=== PATIENT | female | born 1960 | race Caucasian/White ===

== ENCOUNTER 2020-02-08 15:33 | Emergency (ER) | payer OTHER, SELFPAY ==
[2020-02-08 15:54] VITALS: BP 118/73; PULSE 81; RESP 18; TEMP 36.2; O2SAT 100
--- NOTE | 2020-02-08 16:01 | ED.GENADULT ---
HPI - General Adult General Chief complaint: Upper Respiratory Infection Stated complaint: sinus infection Time Seen by Provider: 02/08/20 16:01 Source: patient and RN notes reviewed Mode of arrival: ambulatory Limitations: no limitations History of Present Illness HPI narrative: 59-year-old presents with upper respiratory infection, sneezing, some facial congestion, facial pressure, intermittent dizziness, intermittent fluttery feeling in heart that takes her breath away, and intermittent headache (not the worst of her life) for the past 2 months. Flonase, Claritin, Ibuprofen (none in several days) and Excedrin migraine (last 02/07/20) with some relief. History of Asthma. No facial swelling. No cough. Intermittent nasal congestion. No rhinorrhea. Denies sore throat. No high fevers, drooling, neck or throat swelling. No voice change. Denies diarrhea, nausea, vomiting, or abdominal pain. Tolerating liquids well. Denies chills, dyspnea, difficulty swallowing, jaw pain, dental pain, foreign body sensation, and rash. No chest pain or shortness of breath. Denies recent traveling. Denies concern for COVID-19 or exposures been home since [id number] order except for essential household needs, limited working, and returned home. Complains of dizziness that has been intermittent for the past 2 months. Symptoms increased over the last 72 hours. No treatment. Exacerbating factors consist of changing position too fast turning. Relieving factors is sitting still. Denies ear pain, ear itching, ear trauma, trauma to head, syncopal episodes, altered vision, altered speech, confusion, or seizure activity. Denies numbness or tingling in extremities. Denies chest pain or dyspnea. Denies fever or chills. Tolerating p.o. intake well. Remains active. Some parts of this dictation were generated by voice recognition software and may contain typographical and/or grammatical inaccuracies. Related Data Home Medications Medication Instructions Recorded Confirmed levothyroxine 100 mcg PO DAILY 02/08/20 02/08/20 lisinopril 20 mg DAILY 02/08/20 02/08/20 Allergies Allergy/AdvReac Type Severity Reaction Status Date / Time Sulfa (Sulfonamide Allergy Mild HIVES Verified 02/08/20 15:49 Antibiotics) Review of Systems Review of Systems: Narrative: CONSTITUTIONAL: Denies fever, chills, sweats. EYES: Denies visual changes, redness, discharge. ENT: Complains of rhinorrhea, congestion, facial congestion and pressure. Denies sore throat, otalgia. CARDIOVASCULAR: Denies chest pain, palpitations, edema. Complains of intermittent fluttering of heart. RESPIRATORY: Denies dyspnea, wheezing, cough. GASTROINTESTINAL: Denies abdominal pain, nausea, vomiting, diarrhea. GENITOURINARY: Denies dysuria, hematuria, abnormal discharge SKIN: Denies rash or itching. MUSCULOSKELETAL: Denies acute back pain, joint pain, or myalgia. NEUROLOGIC: Denies numbness, or focal weakness. Complains of intermittent MCGRAW and dizziness. PSYCHIATRIC: Denies anxiety or depression. All other systems reviewed & are unremarkable except as noted in HPI and below. [facility] Past Medical History Medical History (Updated 02/09/20 @ 00:00 by Ricki Hinojosa) Jaylan's disease Hypertension Hypothyroidism Surgical History Surgical History (Updated 02/11/20 @ 06:33 by SHASHANK Cruz) H/O bilateral breast reduction surgery History of cholecystectomy History of hysterectomy History of shoulder surgery bilateral History of tonsillectomy Family History Family History (Updated 02/08/20 @ 16:21 by SHASHANK Cruz) Mother , Mother had open heart surgery in her lat 50's and at age 60. Marlee not sure what caused heart condition could have been HTN per Marlee. Hypertension S/P triple vessel bypass Father No problems noted. Social History Social History (Updated 02/08/20 @ 16:22 by SHASHANK Cruz) Smoking status: For
--- NOTE | 2020-02-08 16:20 | ECG_ITS ---
Measurements Intervals [place] Rate: 70 P: 71 MI: 163 QRS: 37 QRSD: 83 T: 52 QT: 410 QTc: 445 Interpretive Statements SINUS RHYTHM NORMAL ECG Electronically Signed On 02-09-2020 7:10:09 CDT by Uriel Rooney D.O.
[2020-02-08 16:24] VITALS: BP 125/78; BP 130/80; PULSE 79
[2020-02-08 16:25] VITALS: BP 129/81
== END 2020-02-08 16:57 | disposition home or self-care (01) ==
PROVIDERS: Emergency Provider Nurse Practitioner Family; PCP Family Medicine Adolescent Medicine
DX: J01.00 Acute maxillary sinusitis, unspecified (principal); R42 Dizziness and giddiness; Z87.891 Personal history of nicotine dependence; E06.3 Autoimmune thyroiditis; I10 Essential (primary) hypertension; E03.9 Hypothyroidism, unspecified
CPT/HCPCS: 93005; 99213; G0463

== ENCOUNTER → 2020-05-23 07:58 | Outpatient (CLI) | payer OTHER, SELFPAY ==
--- NOTE | ~2020-05-23 | MR_ITS ---
EXAMINATION: MR lumbar spine wo [facility] EXAM DATE: 05/23/2020 08:30 INDICATION: Low back pain and bilateral leg pain/numbness, intermittent for years. TECHNIQUE: Multi-sequential, multiplanar MR images of the lumbar spine were obtained without contrast . Sagittal T1, T2, T2 fat saturation images. Axial T2 weighted images. There is no prior study for comparison. FINDINGS: The conus medullaris terminates at the L1/2 level and has normal signal intensity and morph ology. There is 3 mm anterolisthesis L4 on L5. Moderate disc disease L5-S1, mild to moderate at L2-3 and mild at other lumbar levels. There are no suspicious marrow signal abnormalities. Paraspinal sof t tissue is unremarkable. Level by level evaluation: T12-L1: Disc does not extend beyond the endplate margin. Facet arthropathy: Mild. Neural foraminal stenosis: No stenosis. Central canal stenosis: No stenosis. L1-L2: There is a minimal diffuse disc bulge. Facet arthropathy: Mild. Neural foraminal stenosis: No stenosis. Central canal stenosis: No stenosis. L2-L3: There is a mild diffuse disc bulge. Facet arthropathy: Mild to moderate. Neural foraminal stenosis: Mild to moderate left, mild right. Central canal stenosis: Mild. L3-L4: There is a mild diffuse disc bulge. Facet arthropathy: Mild to moderate. Neural foraminal stenosis: Mild to moderate left, mild right. Central canal stenosis: Mild. L4-L5: There is a mild to moderate diffuse disc bulge. Facet arthropathy: Moderate. Neural foraminal stenosis: Moderate right, mild to moderate left. Central canal stenosis: Mild. L5-S1: There is a moderate diffuse disc bulge. Facet arthropathy: Mild to moderate. Neural foraminal stenosis: Moderate left, mild to moderate right. Central canal stenosis: Mild. IMPRESSION: 1. Mild to moderate lumbar spondylosis as detailed above. Reviewed, dictated and finalized at location A.
== END ==
PROVIDERS: Visit Provider Physician Assistant
DX: M47.896 Other spondylosis, lumbar region (principal); R20.0 Anesthesia of skin
CPT/HCPCS: 72148

== ENCOUNTER 2020-07-25 06:50 | Outpatient (NON) | payer OTHER, SELFPAY ==
[2020-07-25 19:25] LABS: SARS-CoV-2 RNA PCR Negative
== END 2020-07-25 06:51 ==
PROVIDERS: Visit Provider Physician Assistant
DX: Z02.1 Encounter for pre-employment examination (principal); Z20.828 Contact with and (suspected) exposure to other viral communicable diseases
CPT/HCPCS: 87635; C9803; U0003

== ENCOUNTER → 2021-06-05 15:38 | Outpatient (CLI) | payer OTHER, SELFPAY ==
--- NOTE | ~2021-06-05 | MM_ITS ---
EXAMINATION: MM screening [facility] BI w ayleen HISTORY: Screening TECHNIQUE: Craniocaudal and mediolateral oblique 3-D tomosynthesis images were obtained and synthetic 2-D images were generated. CAD analysis was submitted and interpreted. COMPARISON: Comparison to multiple prior studies sequentially, with oldest reviewed study dated 04/20. BREAST PARENCHYMAL COMPOSITION: There are scattered areas of fibroglandular density. FINDINGS: There is no evidence of suspicious mass, calcification, or architectural distortion to sugg est malignancy in either breast. There has been no suspicious interval change. IMPRESSION: 1. No mammographic evidence of malignancy. 2. Recommend routine screening mammography in one year. BI-RADS Category 1: Negative Reviewed, dictated and finalized at location A.
== END ==
PROVIDERS: PCP Family Medicine Adolescent Medicine; Visit Provider Physician Assistant
DX: Z12.31 Encounter for screening mammogram for malignant neoplasm of breast (principal)
CPT/HCPCS: 77063; 77067

== ENCOUNTER 2022-09-13 10:51 | Outpatient (CLI) | payer OTHER, SELFPAY | END 2022-09-13 10:52 | disposition home or self-care (01) | LOC: ANHAUDIO 10:51 | PROVIDERS: PCP Family Medicine Adolescent Medicine; Visit Provider Otolaryngology | DX: H93.13 Tinnitus, bilateral (principal); H90.3 Sensorineural hearing loss, bilateral | CPT/HCPCS: 92557; 92567 ==

== ENCOUNTER → 2022-09-26 14:16 | Outpatient (CLI) | payer OTHER, SELFPAY ==
--- NOTE | ~2022-09-26 | MM_ITS ---
EXAMINATION: MM screening [facility] BI w ayleen HISTORY: Screening mammogram TECHNIQUE: Craniocaudal and mediolateral oblique 3-D tomosynthesis images were obtained and synthetic 2-D images were generated. CAD analysis was submitted and interpreted. COMPARISON: 06/05/2021, 03/23/2019, 03/01/2019, 01/26/2018 BREAST PARENCHYMAL COMPOSITION: There are scattered areas of fibroglandular density. FINDINGS: No suspicious mass, calcification, or architectural distortion are identified in either jayme ast to suggest malignancy. There has been no suspicious interval change. IMPRESSION: 1. No mammographic evidence of malignancy. 2. Recommend routine screening mammography in one year. BI-RADS Category 1: Negative Reviewed, dictated and finalized at location A. OR [employer]
== END ==
PROVIDERS: PCP Family Medicine Adolescent Medicine; Visit Provider Family Medicine Adolescent Medicine
DX: Z12.31 Encounter for screening mammogram for malignant neoplasm of breast (principal)
CPT/HCPCS: 77063; 77067

== ENCOUNTER → 2023-03-13 07:42 | Outpatient (CLI) | payer OTHER, SELFPAY ==
--- NOTE | ~2023-03-13 | MR_ITS ---
MRI of the lumbar spine Clinical History: Left sciatica Technique: Axial T2-weighted images, and sagittal T1-weighted, T2-weighted, and and T2 fat-sat images were acquired. COMPARISON: 05/23/2020 Findings: There is no fracture or subluxation of the lumbar spine. Vertebral bodies maintain normal h eight and alignment. No suspicious bone marrow signal abnormality seen. At L1-L2, there is no significant disc bulge or herniation. There is mild facet arthropathy. No spina l canal stenosis or left neural foraminal narrowing. There is mild right neural foraminal narrowing. At L2-L3, there is degenerative disc narrowing with diffuse disc bulge and superimposed left paracent ral disc protrusion and associated left lateral recess stenosis. There is moderate facet arthropathy. There is moderate to severe left neural foraminal narrowing. There is minimal right neural foraminal narrowing. At L3-L4, there is minimal disc bulge with moderate facet arthropathy. No central canal stenosis. The re is mild to moderate left neural foraminal narrowing. Right neural foramen is minimally narrowed. At L4-L5, there is mild disc bulge and severe facet arthropathy. No central canal stenosis. There is moderate to severe right neural foraminal narrowing. Left neural foramen preserved. At L5-S1, there is advanced degenerative disc narrowing with central disc protrusion. There is advanc ed facet arthropathy. No central canal stenosis. There is moderate right neural foraminal narrowing a nd moderate to severe left neural foraminal narrowing. Paravertebral soft tissues are unremarkable. Impression: Moderate degenerative spondylosis overall, as detailed above. There is multilevel neural foraminal na rrowing. Reviewed, dictated and finalized at [facility]. Impression: Moderate degenerative spondylosis overall, as detailed above. There is multilev el neural foraminal narrowing.
== END ==
PROVIDERS: PCP Family Medicine Adolescent Medicine; Visit Provider Family Medicine Adolescent Medicine
DX: M54.32 Sciatica, left side (principal); K40.90 Unilateral inguinal hernia, without obstruction or gangrene, not specified as recurrent
CPT/HCPCS: 72148

== ENCOUNTER → 2023-05-19 11:07 | Outpatient (CLI) | payer OTHER, SELFPAY ==
--- NOTE | ~2023-05-19 | XR_ITS ---
XR lumbar spine min 4V DATE: 05/19/2023 11:32 INDICATION: Lumbar spondylosis TECHNIQUE: Standing AP, lateral and coned lateral lumbosacral views. Flexion and extension standing l ateral views COMPARISON: 03/13/2023 MRI lumbar spine 01/13/2018 lumbar spine FINDINGS: Mild thoracolumbar dextroscoliosis with slight lower lumbar levoscoliosis. There is severe degenerative disc disease at L5-S1 and mild to moderate degenerative disc disease of the remaining lumbar interspaces, most prominent at L2-3. There is degenerative changes apophyseal joints at L4-5 and L5-S1 with associated minimal grade 1 ant erolisthesis at L4-5, not significantly changed in flexion or extension. No fracture or bone destruction is detected. The included lower thoracic and lumbar pedicles are inta ct. The sacral iliac joints appear normal. Status post cholecystectomy. IMPRESSION: Multilevel degenerative disc disease, most prominent at L5-S1 Grade 1 anterolisthesis at L4-5 due to degenerative changes apophyseal joints Reviewed, dictated and finalized at location L.
== END ==
PROVIDERS: PCP Family Medicine Adolescent Medicine; Visit Provider Neurological Surgery
DX: M47.816 Spondylosis without myelopathy or radiculopathy, lumbar region (principal); M51.37 Other intervertebral disc degeneration, lumbosacral region; M51.36 Other intervertebral disc degeneration, lumbar region
CPT/HCPCS: 72110

== ENCOUNTER 2023-07-03 08:15 | Outpatient (RCR) | payer OTHER, SELFPAY ==
--- NOTE | 2023-05-19 15:32 | OPREHPOC ---
Outpatient Therapy Plan of Care This is a Multidisciplinary Plan of Care that may contain components documented by all disciplines (PT, OT, and ST.) PT Problem 1 PT Problem #1 Knowledge Deficit PT Goal 1 Goal 1* indep with home exercise program 2* pt maintain good posture of back during PT sessions PT Problem 2 PT Problem #2 Pain PT Goal 1 Goal 1* pt report pain at worst rating of 5/10 2* pt report radicular pain into R LE to mid thigh 3* pt report radicular pain into L LE to mid calf 4* Oswestry self assessment functional score of 30 % limitation PT Problem 3 PT Problem #3 Impaired Flexibility PT Goal 1 Goal hamstring length with supine SLR 1* R 75' 2* L 70' anterior hip-quad length with prone knee flexion 3* R130' 4* L 130' PT Problem 4 PT Problem #4 Impaired Strength PT Goal 1 Goal 1* pt able to perform 20 reps of trunk and hip strengthening exercises on the mat, with good stability
--- NOTE | 2023-05-19 15:32 | PTOPEVAL1 ---
Assessment and note entered by Charmaine See, PT Evaluation Information Assessment Status Evaluation Diagnosis lumbar spondylosis, radicular L LE Onset December 2022 Subjective Information chronic pain in back, fell on tailbone about 30 years ago; have had multiple rounds of PT and pelvic floor for sacrum; in December- no injury to back just got worse; now pain is less than in December; had MRI- moderate to severe changes, with buldging discs, facet and decreased disc space, L 2-S1; currently getting treatments from chiropractor-- light massage, stim- is going to hold off on appointments there to see how PT goes; ACTIVITY: 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, 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 and to work 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 only due to back pain, move slower and have to rest more; Reported Pain Level Pain Score Self Report Additional Pain Score Comments pain range in the past week: 1-8/10 in R and L low back and constant numbness into L leg, to bottom of foot; R leg to anterior thigh and medial knee- intermittent; burning and dull ache in back increase pain: standing 1 hour; increase activity- -home chores decrease pain: ice, tramadol 1-2x/day; pain does not disrupt her sleeping; Oswestry self assessment functional score of 40% limitation in activity level; Assessment PT Clinical Summary Marlee has the diagnosis of lumbar spondylosis with radicular pain-- R intermittent to knee and L constant to bottom of foot. She has a history of chronic back pain, with increase in past 3 months, without injury or trauma to her back. Standing and activity tolerance is limited due to pain. Oswestry self assessment functional score of 40% limitation in activity level. She has a home stim unit, but cannot find it--has used in the past and it helped her pain. With the evaluation: pain is increased with standing trunk flexion and prone hip extension; poor standing posture with trunk rotation- L forward and rounded shoulders; tightness over both hamstrings and ante
--- NOTE | 2023-06-10 13:56 | PCPTNOTE ---
Patient did not show up for scheduled appointment this date. Called and talked to patient she forgot and is aware next scheduled appointment is 1330 on June 17.
--- NOTE | 2023-06-24 09:14 | PCPTNOTE ---
Pt had to cancel due to another appt today.
--- NOTE | 2023-07-03 10:58 | OPREHPOC ---
Outpatient Therapy Plan of Care This is a Multidisciplinary Plan of Care that may contain components documented by all disciplines (PT, OT, and ST.) PT Problem 1 PT Problem #1 Knowledge Deficit PT Goal 1 Goal 1* indep with home exercise program 2* pt maintain good posture of back during PT sessions Progress Met PT Problem 2 PT Problem #2 Pain PT Goal 1 Goal 1* pt report pain at worst rating of 5/10 2* pt report radicular pain into R LE to mid thigh 3* pt report radicular pain into L LE to mid calf 4* Oswestry self assessment functional score of 30 % limitation Progress Met Comment No radiating at this time PT Problem 3 PT Problem #3 Impaired Flexibility PT Goal 1 Goal hamstring length with supine SLR 1* R 75' 2* L 70' anterior hip-quad length with prone knee flexion 3* R130' 4* L 130' Progress Met PT Problem 4 PT Problem #4 Impaired Strength PT Goal 1 Goal 1* pt able to perform 20 reps of trunk and hip strengthening exercises on the mat, with good stability Progress Met
--- NOTE | 2023-07-03 10:58 | PTOPDC ---
Assessment and note entered by Enio Cooley, PT Discharge Information Assessment Status Discharge Diagnosis lumbar spondylosis, radicular L LE Onset December 2022 Subjective Information Patient reports that overall she is seeing some improvement but still struggling with some pain. Pain is all in the back at this time and no longer radiates into her leg. Feels she has a solid understanding of her HEP and would like to discharge at this time. Reported Pain Level Pain Score 3: Self Report Assessment PT Clinical Summary Patient has seen some progress at this time but continues to have pain more localized to back. She is showing some signs of capsular restriction in L hip which may reflect either early onset arthritis of hip or capsular irritation radicular from back. We emphasized hip mobility as updated part of HEP and patient will work on these independently to continue to improve. Majority of goals were met but continues to has pain which hopefully will be addressed through continued HEP and hip mobilization. Plan of Care PT Services Indicated No
== END 2023-07-03 15:43 | disposition home or self-care (01) ==
LOC: ANHPT 08:15
PROVIDERS: PCP Family Medicine Adolescent Medicine; Visit Provider Neurological Surgery
DX: M47.816 Spondylosis without myelopathy or radiculopathy, lumbar region (principal)
CPT/HCPCS: 97110; 97140; 97161; 97530; 99199

== ENCOUNTER 2025-01-13 13:47 | Outpatient (CLI) | payer OTHER, SELFPAY ==
--- NOTE | ~2025-01-13 | DEXA_ITS ---
Bone Density Report Name: EDGAR ARCEO Age: 64 Sex: Female Ethnicity: White Date of : 1960 Indication: postmenopausal; screening for osteoporosis; height loss; asthma or emphysema; hysterectomy; Referring Provider: JAMES COSTELLO Study: Bone densitometry was performed. Exam Date: January 13, 2025 Accession number: [id number] Bone Density: Region BMD T-score Z-score Classification AP Spine(L1-L4) 1.081 0.3 2.1 Normal Femoral Neck (Left) 0.771 -0.7 0.8 Normal Total Hip (Left) 0.970 0.2 1.5 Normal Femoral Neck (Right) 0.798 -0.5 1.1 Normal Total Hip (Right) 0.923 -0.2 1.1 Normal Total Hip Mean 0.946 0.0 1.3 Normal World Health Organization criteria for BMD impression classify patients as: Normal (T-score at or above -1.0), Osteopenia (T-score between -1.0 and -2.5), or Osteoporosis (T-score at or below -2.5). 10-year Fracture Risk: FRAX not reported because: All T-scores for Spine Total, Hip Total, Femoral Neck at or above -1.0 Clinical Information Provided by Patient: Has used the following medications: Vitamin D, Calcium Has the following medical conditions: Asthma or Emphysema, Hysterectomy Patient maximum height was 66.5 Menopause Age: 56 Drinks caffeinated beverages Onset of menses at age 9 Number of children 2 Impression: The patient has normal bone mass. Discussion: BONE DENSITY IS ABOVE THE MINIMUM DESIRABLE LEVEL AT ALL SKELETAL SITES TESTED. This patient?s bone mineral density is above the minimum desirable level (T-score -1.0 or better) at all sites measured. The patient should follow a healthful lifestyle (good nutrition with adequate calcium and vitamin D, and appropriate weight-bearing exercise). Follow-Up: Consider repeating this study in 5 years or sooner if there is some new clinical indication. Reported by: NARESH on 01/13/2025 2:25:00 PM. Reviewed, dictated and finalized at location Loki KO
--- NOTE | ~2025-01-13 | MM_ITS ---
EXAMINATION: MM screening mraia esther BI w ayleen HISTORY: Screening TECHNIQUE: Craniocaudal and mediolateral oblique 3-D tomosynthesis images were obtained and synthetic 2-D images were generated. CAD analysis was submitted and interpreted. COMPARISON: Comparison to multiple prior studies sequentially, with oldest reviewed study dated 04/05. BREAST PARENCHYMAL COMPOSITION: Dense: The breasts are heterogeneously dense, which may obscure small masses FINDINGS: There is no evidence of suspicious mass, calcification, or architectural distortion to sugg est malignancy in either breast. There has been no suspicious interval change. IMPRESSION: 1. No mammographic evidence of malignancy. 2. Recommend routine screening mammography in one year. BI-RADS Category 1: Negative Reviewed, dictated and finalized at location B.
--- OUTSIDE RECORDS SUMMARY | 2025-01-13 14:11 | XMS_ITS | Referral Summary ---
Author Organization [facility] Address [address] [facility] [place] [address] Care Team Providers Care Fork Lift Technician Name Role Phone Ever Abbott MD Primary Care Prov ider Chelsey Bernal MD Unavailable [phone] Alon Diaz MD Unavailable [phone] Allergies Active Allergy Reactions Criticality Noted Date Comments Sulfa (Sulfonamide Antibiotics) Hives High 12/25 Medications budesonide-formote rol (SYMBICORT) 160-4.5 mcg/actuation inhalerIndications :Maintenance Therapy for Asthma Inhale 2 puffs 2 (two) times a day Rinse mouth with water after use. Do not swallow. Active lisinopril (PRINIVIL,ZESTRIL) 20 mg tabletIndications: hypertension Take 20 mg by mouth every morning Active albuterol HFA (PROVENTIL HFA,VENTOLIN HFA,PROAIR HFA) 90 mcg/actuation inhalerIndications :Acute Asthma Attack,last used 2 weeks Inhale 2 puffs every 4 (four) hours as needed 08/13/20 17 Active levothyroxine (SYNTHROID, LEVOTHROID) 100 mcg tabletIndications: hypothyroidism Take 100 mcg by mouth every morning 10/14/20 16 Active psyllium seed, sugar, (METAMUCIL, SUGAR,) powderIndications: constipation Take by mouth as needed Active cholecalciferol, vitD3,/vit K2 (VITAMIN D3-VITAMIN K2 ORAL)Indications:s upplement Take by mouth nightly 15 drops Active cyanocobalamin, vitamin B-12, (VITAMIN B-12 ORAL)Indications:s upplement Take 1 tablet by mouth nightly Active ascorbic acid (VITAMIN C ORAL)Indications:s upplement Take 1 tablet/chew tab by mouth nightly Active magnesium oxide (MAG-OX) 400 mg (241.3 mg elemental magnesium) tabletIndications: supplement Take 400 mg of elemental magnesium by mouth as needed Active HERBAL DRUGS ORALIndications:sl eep Take 0.25 tablet/chew tab by mouth nightly canibus gummie Active HYDROcodone-acetam inophen (NORCO) 5-325 mg per tabletIndications: Pain Take 1 tablet by mouth every 4 (four) hours as needed for pain for up to 20 doses 30 tablet 09/08/20 20 Active Additional Information Patient not taking.Reported on 11/27/2020 ondansetron ODT (ZOFRAN-ODT) 4 mg disintegrating tablet DISSOLVE 1 TABLET ON THE TONGUE EVERY 8 HOURS NEEDED 11/15/19 21 Active multivit with min-folic acid 200 mcg tablet,chewable 10/27/19 22 Active traMADoL (ULTRAM) 50 mg tablet Take 50 mg by mouth every 4 (four) hours as needed for pain 05/27/20 22 Active estradioL (ESTRACE) 0.01 % (0.1 mg/gram) vaginal cream Insert one gram into the vagina twice per week such as Friday and . 42.5 g 1 05/29/20 22 Active Active Problems Problem Noted Date Diagnosed Date Vaginal atrophy 05/29/2022 Assessment & Plan (05/29/2022 11:31 AM CDT): - discussed the importance of consistent twice weekly VET use Pelvic pain 03/22/2022 Sacral mass 03/09/2021 Mixed stress and urge urinary incontinence 11/27 Assessment & Plan (05/29/2022 11:26 AM CDT): - s/p UDS 09/2020 that showed GABINO (prior sling) - she denies any bothersome symptoms today PUD (peptic ulcer disease) 11/03/2020 Prolapse of vaginal vault after hysterectomy 02/2020 Assessment & Plan (05/29/2022 11:29 AM CDT): Management options were discussed for her stable appearing stage 2 anterior predominant post hysterectomy VVP including expectant management, conservative management (a pessary), and surgical management (obliterative vs reconstructive). She is overall not bothered by her symptoms and desires to continue expectant management for now but may consider pessary in the future; information provided. She is sexually active. Cystocele, midline 08/31/2020 Urge urinary incontinence 08/31/2020 Constipation due to outlet obstruction 0 Assessment & Plan (05/29/2022 11:27 AM CDT): - currently managed with Metamucil Pelvic floor dysfunction in female 08/31/2020 Assessment & Plan (05/29/2022 11:26 AM CDT): - completed PFPT, advised to continue HEP - patient may consider pain mgmt referral for any residual tailbone pain Unilateral inguinal hernia without obstruction o r gangrene 08/07/2020 Overview (08/07/2020): Added automatically from request for surgery [id number] Ventral hernia without obstruction or gangrene 0 07/18/2020 Groin pain, right 06/22/2019 Slow transit constipation 06/22/2019 Pain of upper abdomen 01/26/2019 Right lower quadrant abdominal pain 01/26/2019 Disorder of thyroid 08/13/2017 Mental disorder 08/13/2017 Other amnesia 08/13/2017 Pelvic floor dysfunction 06/02/2017 Irritable bowel syndrome 06/02/2017 Obesity with body mass index 30 or greater 05/29 Abnormal computed tomography scan 01/17/2017 Asthma 01/10/2017 Hypertensive disorder 01/10/2017 Smoker 01/10/2017 Abdominal pain 12/12/2016 Incomplete passage of stool 12/03/2016 Constipation 01/31/2015 Disturbance of skin sensation 09/23/2013 Pain in joint 09/23/2013 Other specified abnormal immunological findings in serum 09/23/2013 Resolved Problems Problem Noted Date Diagnosed Date Resolved Date Rectocele 01/26/2019 11/27/2020 Social History Tobacco Use Types Packs/Day Years Used Date Smoking Tobacco: Former Cigarettes Q uit: 12/2017 Smokeless Tobacco: Never Comments:Smoking History Pac ks/day: 3 Packs Alcohol Use Standard Drinks/Week Comments Yes 2 (1 standard drink = 0.6 oz pur e alcohol) Exercise Vital Sign Answer Date Recorde d On average, how many days pe r week do you engage in moderate to strenuous exercise (like a brisk walk)? 0 days 08/31/2020 On average, how many minutes do you engage in exercise at this level? 0 min 08/31/2020 Comments No Sex and Gender Information Value Date Recorded Sex Assigned at Not on file Legal Sex Female 2:00 AM [employer]UILL [employer] Gender Identity Not on file Sexual Orientation Not on file Last Filed Vital Signs Vital Sign Reading Time Taken Comments Blood Pressure 135/90 05/29/2022 9:24 AM CDT Pulse 66 03/09/2021 10:34 AM CDT Temperature 36.5 C (97.7 F) 03/09/2021 10:34 AM CDT Respiratory Rate 18 03/09/2021 10:3 4 AM CDT Oxygen Saturation 100% 03/09/2021 10: 34 AM CDT Inhaled Oxygen Concentration - - Weight 69.8 kg (153 lb 12.8 oz) 05/29/2022 9:24 AM CDT Height 165.1 cm (5' 5 ) 05/29/2022 9:24 AM CDT Body Mass Index 25.59 05/29/2022 9:24 AM CDT Plan of Treatment Not on file Medical Devices Implanted Type Area Lead Medical Technologist Device Identifier Shelf Expiration Date Model / Serial / Lot [employer] [id number] Large Pore Knit Monofilament Smooth [place] - [id number] Implanted:Qty: 1 on 08/21/2020 by Alon Diaz MD at [facility] Right: Groin [employer] [id number] 03/23/2025 [id number] / / [id number] [facility] CHO[facility] PLUS Care Teams Fork Lift Technician Relationship Specialty Start Date End Date Ever Abbott MD [address] [place] [address] PCP - General 12/19/16 Chelsey Bernal MD [address] [place] [address] Referring Physician Gastroenterology 03/23/19 Alon Diaz MD [address] [place] [address] Surgeon Surgical Critical Care 08/21/20
--- OUTSIDE RECORDS SUMMARY | 2025-01-13 14:11 | XMS_ITS | Clinical Summary ---
Author Organization [facility] Address [address] [place] [place] [address] Phone Care Team Providers Care It Risk And Assurance Manager Name Role Phone Ever Abbott MD Primary Care Provider [phone] Allergies Active Allergy Reactions Criticality Noted Date Comments Sulfa (Sulfonamide Antibiotics) Hives High 12/25 Medications gabapentin (NEURONTIN) 600 mg tablet Take 600 mg by mouth 4 times daily . 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 Active lisinopril (PRINIVIL) 20 mg tablet Take 20 mg by mouth daily. Active hydrochlorothia zide 25 mg tablet Take 25 mg by mouth daily. Active budesonide-form oterol (SYMBICORT) 160-4.5 mcg/actuation HFA Aerosol Inhaler Take 2 Puffs by inhalation 2 times daily. Active cyclobenzaprine (FLEXERIL) 5 mg Tablet Take 5 mg by mouth 3 times daily as needed for Spasm. Active ALBUTEROL (VENTOLIN INHALATION) Take by inhalation. Active estradiol (ESTRACE) 1 mg tablet Take 1 mg by mouth daily. Active montelukast (SINGULAIR) 10 mg tablet Take 1 Tablet (10 mg) by mouth daily. 30 Tablet 2 6 Active Additional Information Patient taking differently:10 mg OralDAILY AT BEDTIME, Indications: PRN, Reported on 09/30/2016 indomethacin (INDOCIN) 50 mg capsule Take 50 mg by mouth 3 times daily. Active HYDROcodone-johnny taminophen (NORCO) 5-325 mg tablet Take 1 Tablet by mouth every 4 hours as needed. Max Daily Amount: 6 Tablet 25 Tablet 6 Active Active Problems No known active problems Immunizations Immunization Administration Dates Next Due Influenza Seasonal Unspecified Formulation IM Family History Medical History Relation Name Comments Asthma Brother Heart Failure Father Hypertension Father Diabetes Maternal Aunt Cancer Maternal Cousin Emphysema Maternal Grandfather Diabetes Maternal Grandmother Hypertension Mother Cancer Paternal Grandfather Bronchitis Neg Hx Relation Name Status Comments Brother Father Maternal Aunt Maternal Cousin Maternal Grandfather Maternal Grandmother Mother Paternal Grandfather Social History Tobacco Use Types Packs/Day Years Used Date Smoking Tobacco: Former Cigarettes 0.3 15 1 12/01/1990 - 09/30/2006 Alcohol Use Standard Drinks/Week Comments Yes 0 (1 standard drink = 0.6 oz pur e alcohol) 1 BOTTLE WINE/WK Comments No Sex and Gender Information Value Date Recorded Sex Assigned at Not on file Legal Sex Female 12:47 PM 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 SERVICES 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 Gender Identity Not on file Sexual Orientation Not on file Last Filed Vital Signs Vital Sign Reading Time Taken Comments Blood Pressure 126/68 10/12/2016 8:48 AM MULTIMEDIA SERVICES MANAGER Pulse 96 10/12/2016 8:48 AM MULTIMEDIA SERVICES MANAGER Temperature 37 C (98.6 F) 10/12/2016 8:48 AM MULTIMEDIA SERVICES MANAGER Respiratory Rate 18 10/12/2016 8:48 AM MULTIMEDIA SERVICES MANAGER Oxygen Saturation 96% 10/12/2016 8:48 AM MULTIMEDIA SERVICES MANAGER Inhaled Oxygen Concentration - - Weight 87.5 kg (192 lb 12.8 oz) 10/11/2016 5:20 AM MULTIMEDIA SERVICES MANAGER Height 165.1 cm (5' 5 ) 10/11/2016 5:20 AM MULTIMEDIA SERVICES MANAGER Body Mass Index 32.08 10/11/2016 5:20 AM MULTIMEDIA SERVICES MANAGER Plan of Treatment Health Maintenance Due Date Last Done Comments DTAP/TDAP/TD VACCINES (1 - Tdap) 1978 BREAST CANCER SCREENING 1999 COLORECTAL SCREENING 2004 Colorectal Cancer Screening 2004 FIT-DNA Q 3 years 2004 FIT/FOBT Q 1 year 2004 Flex Sig/CT Colonography Q 5 years 2004 PNEUMOCOCCAL VACCINE 50+ YEARS (1 of 1 - PCV) 05/05/20 09 ZOSTER VACCINE (1 of 2) 2009 OSTEOPOROSIS SCREENING 2024 INFLUENZA VACCINE (#1) 2024 08/31/2016 RSV VACCINE (60+ or ) (1 - 1-dose 75+ series) 2034 Insurance [id number] [id number] Advance Directives For more information, please contact: [phone] * Full Code (Latest Code Status on File) Date Activated Date Inactivated Comments 10/11/2016 11:12 AM 10/12/2016 1:45 PM * Full Code Date Activated Date Inactivated Comments 10/11/2016 5:20 AM 10/11/2016 11:12 AM * Full Code Date Activated Date Inactivated Comments 04/08/2016 8:41 AM 04/08/2016 2:24 PM * Full Code Date Activated Date Inactivated Comments 04/08/2016 7:01 AM 04/08/2016 8:41 AM * Full Code Date Activated Date Inactivated Comments 04/08/2016 5:48 AM 04/08/2016 7:01 AM Care Teams It Risk And Assurance Manager Relationship Specialty Start Date End Date Ever Abbott MD [address] [place] [id number] PCP - General Family Practice 01/08/16
--- OUTSIDE RECORDS SUMMARY | 2025-01-13 14:11 | XMS_ITS | Clinical Summary ---
Author Organization [facility] Address [address] [facility] [place] [address] Care Team Providers Care Caustic Purification Operator Name Role Phone Ever Abbott MD Primary Care Prov ider Chelsey Bernal MD Unavailable [phone] Alon Diaz MD Unavailable [phone]- [phone] Allergies Active Allergy Reactions Criticality Noted Date [...] (08/07/2020): Added automatically from request for surgery [id number] Ventral hernia without obstruction or gangrene 0 [...] Diagnosed Date Resolved Date Rectocele 01/26/2019 11/27/2020 Surgical History Surgery Date Site/Laterality Comments GALLBLADDER SURGERY COLONOSCOPY REDUCTION MAMMAPLASTY VAGINA SURGERY vaginal surgery with mesh BLADDER SUSPENSION 06/20/2004 CHOLECYSTECTOMY 10/27/2015 - 10/26/2016 HYSTERECTOMY 10/27/2015 - 10/26/2016 HERNIA REPAIR 08/21/2020 COLON SURGERY SHOULDER SURGERY Medical History Medical History Date Comments Hypertension Pelvic floor dysfunction Rectocele Arthritis Nausea Abdominal pain Asthma High blood pressure Anemia Rectal bleeding Thyroid disease Asthma PONV (postoperative nausea and vomiting) Ear problems ringing Joint pain Family History Medical History Relation Name Comments Heart failure Father Hypertension Father Family history of hypertension - (Added by Conv) Hypertension Mother Family history of hypertension - (Added by Conv) Other Mother Intracerebral h emorrhage; Cause of : Intracerebral hemorrhage Diabetes Other Family history of diabetes mellitus - Relation: Grandmother (Added by Conv) Anesthesia problems Neg Hx Relation Name Status Comments Father (Age 54) Mother (Age 60) Other Social History Tobacco Use Types Packs/Day Years [...] on file 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 Gender Identity Not on file Sexual Orientation Not on file Obstetrics History Para Term AB IAB SAB Ectopic Multiple Livin g Live Births 3 2 2 1 1 2 2 Date Outcome GA Total Labor Labor/2nd/3rd Weight Sex Type Anes PTL Candida A1 A5 Name Clin Term Vag-S pont Living Term Vag-S pont Living SAB Last Filed Vital Signs Vital Sign Reading [...] 05/29/2022 9:24 AM CDT Plan of Treatment Health Maintenance Due Date Last Done Comments Breast Cancer Screening-Mammogram 1959 Colon Cancer Screening-Colonoscopy 1959 Depression Screening 1959 Hepatitis C Screening 1959 Osteoporosis Screening-Bone Density Scan 1959 DTaP/Tdap/Td Vaccine (1 - Tdap) 1970 Hepatitis B Screening 1977 Pneumococcal vaccine 65+ (1 of 2 - PCV) 1978 Fall Risk Assessment 08/21/2021 08/21/2020 Well Visit 65+ 2024 Influenza Vaccine (#1) 2024 6, 09/11/2015, 07/04/2014, Additional history exists Zoster Vaccine Completed 04/29/2018, 02/09/2018 Medical Devices Implanted Type Area Bindery Machine Operator Device Identifier Shelf Expiration Date Model / Serial / Lot [employer]/C R Bard [id number] Large Pore Knit Monofilament Smooth [place] - [id number] Implanted:Qty: 1 on 08/21/2020 by Alon Diaz MD at [facility] Right: Groin [employer] R Bard [id number] 03/23/2025 [id number] / / [id number] Insurance [facility] OPEN [facility]ESS [facility] CHOICE PLUS Care Teams Caustic Purification Operator Relationship Specialty Start Date End Date Ever Abbott MD [address] [place] [address] PCP - General 12/19/16 Chelsey Bernal MD [address] [place] [address] Referring Physician Gastroenterology 03/23/19 Alon Diaz MD [address] [place] [address] Surgeon Surgical Critical Care 08/21/20
--- OUTSIDE RECORDS SUMMARY | 2025-01-13 14:11 | XMS_ITS | Clinical Summary ---
Author Organization [facility] Address [facility] [place] [address] Care Team Providers Care Poultry Grader Name Role Phone Unavailable Primary Care Provider Unavailabl e Social History Tobacco Use Types Packs/Day Years Used Date Smoking Tobacco: Never Assessed Comments Unknown Sex and Gender Information Value Date Recorded Sex Assigned at Not on file Legal Sex Female 7:56 PM CDT Gender Identity Not on file Sexual Orientation Not on file Plan of Treatment Health Maintenance Due Date Last Done Comments Colorectal Cancer Screening Colonoscopy (10 Years) 1959 Hepatitis C 1977 DTaP, Tdap and Td Vaccines ( 1 - Tdap) 1978 Mammogram Screening 1999 Zoster Vaccines (1 of 2) 2009 Dexa Scan (General) 2024 Pneumococcal Vaccine: 65+ Ye ars (1 of 1 - PCV) 2024 COVID-19 Vaccine (2023-2 5 season) 2024 Influenza Adult (#1) 2024 RSV Immunization or 60+ Years (1 - 1-dose 75+ series) 2034 Meningococcal B Vaccine Aged Out No l onger eligible based on patient's age to complete this topic Meningococcal Vaccine Aged Out No moody lu eligible based on patient's age to complete this topic Pneumococcal Vaccine: Pediat rics (0 to 5 Years) and At-Risk Patients (6 to 64 Years) Aged Out No longer eligible b ased on patient's age to complete this topic RSV Immunizations Under 20 Months Aged Out No longer eligible based on patient's age to complete this topic
--- OUTSIDE RECORDS SUMMARY | 2025-01-13 14:11 | XMS_ITS | Clinical Summary ---
Author Organization [facility] Address [address] [facility] [place] [address] Care Team Providers Care Poultry Grader Name Role Phone Ever Abbott MD Primary Care Provider + Source Comments [facility],non-owned Affiliates and Associated Physician Practices is amultiple site organization consisting of ambulatory clinics and hospital sitesin [place], [place], [place] and [place]. This disclosure is being madepursuant to the Care Everywhere program and may not contain all information available regarding this patient. Last updated 18.Yowza Allergies Active Allergy Reactions Criticality Noted Date Comments Sulfa Drugs Rash Medium 09/22/2013 Medications * Be aware that medications may not be up to date on this document. Alwaysverify current medications with the patient. Medication Sig Dispensed Refills Start Date End Date Status ergocalciferol (DRISDOL) 52735 UNITS capsule Take 50,000 Units by mouth q7days. 4 capsule 3 01/07/2018 Active albuterol (PROVENTIL; VENTOLIN) 90 MCG/ACT inhaler Inhale 2 puffs by mouth. 08/13/2017 Active hydroCHLOROthiazide (HYDRODIURIL) 25 MG tablet Take 25 mg by mouth DAILY. 08/13/2017 Active indomethacin (INDOCIN) 50 MG capsule Take 50 mg by mouth. 08/13/2017 Active linaCLOtide (LINZESS) 72 MCG capsule Take 1 tablet by mouth. 08/13/2017 Active cyclobenzaprine (FLEXERIL) 5 MG tablet Take 5 mg by mouth. 08/13/2017 Active estradiol (ESTRACE) 1 MG tablet Take 1 mg by mouth DAILY. 08/13/2017 Active hyoscyamine CR (LEVSINEX) 0.375 MG capsule Take by mouth BID. 08/13/2017 Active Active Problems Problem Noted Date Diagnosed Date Mental disorder 08/13/2017 Disorder of thyroid 08/13/2017 Other amnesia 08/13/2017 Myalgia 09/23/2013 Disturbance of skin sensation 09/23/2013 Pain in joint 09/23/2013 Other specified abnormal immunological findings in serum 09/23/2013 Immunizations Name Administration Dates Next Due INFLUENZA VACCINE, TRIV. (AF LURIA, FLUZONE TRIVALENT; 6MO+) (IIV3) 08/31/2016 Family History Medical History Relation Name Comments None Known Daughter Status: Alive Heart Disease Father Status: Deceas ed Heart Disease Mother Status: Deceas ed None Known Other granddaughter Status: Alive None Known Sister FMS Status: Alive None Known Son Status: Alive Relation Name Status Comments Daughter Father Mother Other granddaughter Sister FMS Son Social History Tobacco Use Types Packs/Day Years Used Date Smoking Tobacco: Former Cigarettes Q uit: 10/26/2013 Smokeless Tobacco: Former Alcohol Use Standard Drinks/Week Comments Yes 3.3 (1 standard drink = 0.6 oz p ure alcohol) Sex and Gender Information Value Date Recorded Sex Assigned at Not on file Gender Identity Not on file Sexual Orientation Not on file Last Filed Vital Signs Vital Sign Reading Time Taken Comments Blood Pressure 116/80 01/07/2018 8:22 AM CDT Pulse 88 01/07/2018 8:22 AM CDT Temperature 37 C (98.6 F) 01/07/2018 8:22 AM CDT Respiratory Rate 20 03/09/2014 10:26 AM CDT Oxygen Saturation 95% 01/07/2018 8:22 AM CDT Inhaled Oxygen Concentration - - Weight 84.9 kg (187 lb 3.2 oz) 01/07/2018 8:22 A M CDT Height 167.6 cm (5' 6 ) 01/07/2018 8:22 AM CDT Body Mass Index 30.21 01/07/2018 8:22 AM CDT Plan of Treatment Health Maintenance Due Date Last Done Comments BONE DENSITY TESTING 1959 COLOGUARD (AGES 45-75) - COL ON CA SCREENING 1959 COLON MONITORING 1959 COLONOSCOPY - COLON CA SCREENING 1959 CT COLONOGRAPHY - COLON CA SCREENING 1959 Colorectal Cancer Screening 1959 FIT - COLON CA SCREENING 1959 FLEX SIG - COLON CA SCREENING 1959 LIPID TESTING 1959 MAMMOGRAM 1959 PAP SMEAR 1959 HIV SCREENING 1974 DTAP/TDAP/TD VACCINES (1 - Tdap) 1978 PNEUMOCOCCAL VACCINE 50+ (1 of 1 - PCV) 2009 ZOSTER VACCINE (1 of 2) 2009 COVID-19 VACCINE (1 - 2023-2 5 season) 2024 INFLUENZA VACCINE (#1) 2024 08/31/2016 DEPRESSION SCREENING 10/27/2024 Respiratory Syncytial Virus (RSV) Vaccine Pt: or over 60 yrs (1 - 1-dose 75+ series) 2034 HEPATITIS C SCREENING Completed 09/22/2013 HEPATITIS B VACCINE Aged Out No longe r eligible based on patient's age to complete this topic HIB VACCINE Aged Out No longer eligi ble based on patient's age to complete this topic HPV VACCINE Aged Out No longer eligi ble based on patient's age to complete this topic MENINGOCOCCAL (Group B) VACC INE SHARED DECISION-MAKING Aged Out No longer eligibl e based on patient's age to complete this topic MENINGOCOCCAL GROUPS A/C/Y/W VACCINE Aged Out No longer eligible b ased on patient's age to complete this topic Procedures Procedure Name Priority Date/Time Associated Diagnosis Comments HEPATITIS C ANTIBODY Routine 09/22/2013 11:58 AM BOX CHIPPER from Last 3 Months or Most Recently Relevant to Health Maintenance Results * HEPATITIS C ANTIBODY (09/22/2013 11:58 AM BOX CHIPPER) Hepatitis C Virus Antibody 0.1 0.0 - 0.9 s/co ratio [facility]) Comment: Negative: < 0.8 Indeterminate 0.8 - 0.9 Positive: > 0.9 In order to reduce the incidence of a false positive result, the CDC recommends that all s/co ratios between 1.0 and 10.9 be confirmed by a more specific supplemental or PCR testing. [facility] offers HCV Ab w/Reflex to Verification test #[id number]. 09/22/2013 11:5 8 AM BOX CHIPPER 09/22/2013 6:08 PM BOX CHIPPER Narrative [facility]) - 09/23/2013 7:22 AM BOX CHIPPER Performed at: - [facility] [address] [id number] Traffic Manager: Micah Huertas MD, Phone: [phone] Adia Iglesias MD LAB - CHEMISTRY ORD ERABLES [facility] (BEST) from Last 3 Months or Most Recently Relevant to Health Maintenance Care Teams Poultry Grader Relationship Specialty Start Date End Date Ever Abbott MD [address] [place] [id number] PCP - General 04/11/17
== END 2025-01-13 13:48 | disposition home or self-care (01) ==
PROVIDERS: PCP Family Medicine Adolescent Medicine; Visit Provider Family Medicine Adolescent Medicine
DX: Z12.31 Encounter for screening mammogram for malignant neoplasm of breast (principal); Z78.0 Asymptomatic menopausal state
CPT/HCPCS: 77063; 77067; 77080

== ENCOUNTER 2025-01-19 07:48 | Outpatient (CLI) | payer OTHER, SELFPAY ==
--- NOTE | ~2025-01-19 | US_ITS ---
US abdomen limited 01/19/2025 08:16 Indication: Epigastric swelling. Palpable mass. Evaluate for hernia. Procedure: High-resolution Limited ultrasound of the anterior abdomen in the area of palpable concern Comparison: No prior studies for comparison. Findings: No evidence for hernia. Normal heterogeneous soft tissues in the anterior abdominal wall. N o focal masses or fluid collections. Impression: 1: Unremarkable soft tissue ultrasound of the anterior abdominal wall without evidence for hernia. Reviewed, dictated and finalized at location A. Impression: 1: Unremarkable soft tissue ultrasound of the anterior abdominal wall without e vidence for hernia.
== END 2025-01-19 07:49 | disposition home or self-care (01) ==
LOC: MICIMG 07:49
PROVIDERS: PCP Family Medicine Adolescent Medicine; Visit Provider Nurse Practitioner Family
DX: R19.06 Epigastric swelling, mass or lump (principal)
CPT/HCPCS: 76705

== ENCOUNTER 2025-05-10 00:58 | Day surgery (SDC) | payer OTHER, SELFPAY ==
[2025-04-21 12:44] VITALS: BMI 28.3
--- OUTSIDE RECORDS SUMMARY | 2025-05-10 01:01 | XMS_ITS | Clinical Summary ---
Author Organization [facility] Address [address] [facility] [place] [address] Care Team Providers Care Professional Engineer Name Role Phone Ever Abbott MD Primary Care Prov ider Chelsey Bernal MD Unavailable [phone] Alon Diaz MD Unavailable [phone] Allergies Active Allergy Reactions Criticality Noted Date [...] (08/07/2020): Added automatically from request for surgery [id number] Ventral hernia without obstruction or gangrene 0 [...] on file Legal Sex Female 2:00 AM DETECTIVE PRECINCT Gender Identity Not on file Sexual Orientation [...] 9:24 AM CDT Height 165.1 cm (5' 5) 05/29/2022 9:24 AM CDT Body Mass Index [...] 08/21/2020 Well Visit 65+ 2024 Influenza Vaccine (Season Ended) 2025 08/31/2016, 09/11/2015, 07/04/2014, Additional history exists Zoster Vaccine Completed 04/29/2018, 02/09/2018 Medical Devices Implanted Type Area Gas Dispenser Device Identifier Shelf Expiration Date Model / Serial / Lot [employer]/C R Bard [id number] Large Pore Knit Monofilament Smooth [place] - [id number] Implanted:Qty: 1 on 08/21/2020 by Alon Diaz MD at [facility] Right: Groin [employer] R Bard [id number] 03/23/2025 [id number] / / [id number] Insurance [facility] OPEN ACCESS [facility] CHOICE PLUS Care Teams Professional Engineer Relationship Specialty Start Date End Date Ever Abbott MD [address] [place] [address] PCP - General 12/19/16 Chelsey Bernal MD [address] [place] [address] Referring Physician Gastroenterology 03/23/19 Alon Diaz MD [address] [place] [address] Surgeon Surgical Critical Care 08/21/20
--- OUTSIDE RECORDS SUMMARY | 2025-05-10 01:01 | XMS_ITS | Clinical Summary ---
Author Organization [facility] Address [address] [place] [address] Phone Care Team Providers Care Merchandise Marker Name Role Phone Ever Abbott MD Primary Care Provider [phone] Allergies Active Allergy Reactions Criticality Noted Date Comments Sulfa (Sulfonamide Antibiotics) Hives High 12/25 Medications gabapentin (NEURONTIN) 600 mg tablet Take 600 mg by mouth 4 times daily . Active levothyroxine 125 mcg tablet Take 125 mcg by mouth daily composition weatherboard applier. Active lisinopril (PRINIVIL) 20 mg tablet Take [...] on file Legal Sex Female 12:47 PM MICROCOMPUTER TECHNICIAN Gender Identity Not on file Sexual Orientation Not on file Last Filed Vital Signs Vital Sign Reading Time Taken Comments Blood Pressure 126/68 10/12/2016 8:48 AM MICROCOMPUTER TECHNICIAN Pulse 96 10/12/2016 8:48 AM MICROCOMPUTER TECHNICIAN Temperature 37 C (98.6 F) 10/12/2016 8:48 AM MICROCOMPUTER TECHNICIAN Respiratory Rate 18 10/12/2016 8:48 AM MICROCOMPUTER TECHNICIAN Oxygen Saturation 96% 10/12/2016 8:48 AM MICROCOMPUTER TECHNICIAN Inhaled Oxygen Concentration - - Weight 87.5 kg (192 lb 12.8 oz) 10/11/2016 5:20 AM MICROCOMPUTER TECHNICIAN Height 165.1 cm (5' 5) 10/11/2016 5:20 AM MICROCOMPUTER TECHNICIAN Body Mass Index 32.08 10/11/2016 5:20 AM MICROCOMPUTER TECHNICIAN Plan of Treatment Health Maintenance Due Date [...] 2009 OSTEOPOROSIS SCREENING 2024 INFLUENZA VACCINE (#1) 2025 08/31/2016 RSV VACCINE (60+ or ) (1 - 1-dose 75+ series) 2034 Insurance [address] [id number] Advance Directives For more information, please contact: [phone] * Full Code (Latest Code Status on [...] 5:48 AM 04/08/2016 7:01 AM Care Teams Merchandise Marker Relationship Specialty Start Date End Date Ever Abbott MD PCP - General Family Practice 01/08/16
--- OUTSIDE RECORDS SUMMARY | 2025-05-10 01:01 | XMS_ITS | Clinical Summary ---
Author Organization [facility] Address [facility] [place] [address] Care Team Providers Care Safety Manager Name Role Phone Unavailable Primary Care Provider [...] 1 - Tdap) 1978 Mammogram Screening 1999 Pneumococcal Vaccine: 50+ Ye ars (1 of 1 - PCV) 2009 Zoster Vaccines (1 of 2) 2009 Dexa Scan (General) 2024 COVID-19 Vaccine ( - 2023-2 5 season) 2024 RSV Immunization or 60+ Years (1 [...]
--- OUTSIDE RECORDS SUMMARY | 2025-05-10 01:01 | XMS_ITS | Continuity of Care Document ---
Author Organization [facility] Address [address] [place] [address] Phone Care Team Providers Care Event Marketing Specialist Name Role Phone Chris Soto Unavailable Unavailable Procedures Procedure Date PT Evaluation Moderate Complexity Therapeutic Exercise Neuromuscular Re-Ed Advance Directives Directive Yes / No Effective Date File Name No Information Encounters Encounter Description Practice Location Reason(s) For Visit Diagnoses Date Provider Providers Copied on Encounter [facility], [address] [address], [place], [place], [id number], [phone] [place] No Information Jan- 8 Arsen Perez. [address], [facility], . tel: [phone] [facility], [address] [place] [address], [place], [place], [id number], tel:[phone] [place] Low back painPain in right hipCervicalgiaSe gmental and somatic dysfunction of cervical regionSegmental and somatic dysfunction of lumbar region Apr-0 8 Muehl Chris. [address] [facility], [facility] [address], [place], [facility], . tel: [phone] Referring Provider: Ever Abbott , [address] [place] [address], [address]. tel:[phone] Family History Family Member Type Diagnosis Age At Onset No Information Payers Payer name Insurance type Covered democrat ID [id number] Social History Type Description Quantity Date Captured Comments Sex Female Smoking Status No Information Chief Complaint And Reason For Visit No Information Reason For Referral Reason For Referral No Information History Of Present Illness Encounter Date Complaint History Of Prese nt Illness No Information Functional Status Date Functional Assessmen t No Information Instructions Date Instruction Additional Infor mation No Information Assessments Type Assessment Date No Information Patient Care Teams Name Effective Dates (start - stop) Status Members No Information
--- OUTSIDE RECORDS SUMMARY | 2025-05-10 01:01 | XMS_ITS | Referral Summary ---
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 Gender Identity Not on file Sexual [...] on file Medical Devices Implanted Type Area Veneer Repairer Machine Device Identifier Shelf Expiration Date Model / Serial / Lot [employer] R Bard [id number] Large Pore Knit Monofilament Smooth [place] - [id number] Implanted:Qty: 1 on 08/21/2020 by Alon Diaz MD at [facility] Right: Groin [employer] [id number] 03/23/2025 [id number] / / [id number] [facility] CHOICE PLUS [facility] HMO/PPO Address: [facility] [address] [place] [address] [facility] H[facility]/PPO Address: [address] [address] [place] [address] Care Teams Global Analytics Head Relationship Specialty Start Date End Date Ever Abbott MD [address] [place] [address] PCP - General 12/19/16 Chelsey Bernal MD [address] [place] [address] Referring Physician Gastroenterology 03/23/19 Alon Diaz MD [address] [place] [address] Surgeon Surgical Critical Care 08/21/20
--- OUTSIDE RECORDS SUMMARY | 2025-05-10 01:01 | XMS_ITS | Clinical Summary ---
Author Organization [facility] Address [address] [place] [address] Care Team Providers Care Industrial Safety And Health Manager Name Role Phone Ever Abbott MD Primary Care Provider + Source Comments [facility],non-owned Affiliates and Associated Physician Practices is amultiple site organization consisting of ambulatory clinics and hospital sitesin [place], [place], [place] and [place]. This disclosure is being madepursuant to the Care Everywhere program and may not contain all information available regarding this patient. Last updated 18.Vyteris Allergies Active Allergy Reactions Criticality Noted Date Comments Sulfa Drugs Rash Medium 09/22/2013 Medications * Be aware that medications may not be up to date on this document. Alwaysverify current medications with the patient. ergocalciferol (DRISDOL) 10704 UNITS capsule Take 50,000 Units by mouth q7days. 4 capsule 3 01/07/2018 Active albuterol (PROVENTIL; VENTOLIN) 90 MCG/ACT inhaler Inhale 2 puffs by mouth. 08/13/2017 Active hydroCHLOROthiaz cisco (HYDRODIURIL) 25 MG tablet Take 25 mg [...] abnormal immunological findings in serum 09/23/2013 Immunizations Immunization Administration Dates Next Due INFLUENZA VACCINE, TRIV. 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 Gender Identity Not on file Sexual Orientation [...] A M CDT Height 167.6 cm (5' 6) 01/07/2018 8:22 AM CDT Body Mass Index [...] SCREENING 1960 LIPID TESTING 1960 MAMMOGRAM 1960 DTAP/TDAP/TD VACCINES (1 - Tdap) 1978 PNEUMOCOCCAL VACCINE 50+ (1 of 1 - PCV) 2009 ZOSTER VACCINE (1 of 2) 2009 COVID-19 VACCINE (1 - 2023-2 5 season) 2024 DEPRESSION SCREENING 10/27/2024 INFLUENZA VACCINE (#1) 2025 08/31/2016 Respiratory Syncytial Virus (RSV) Vaccine Pt: or [...] HEPATITIS C ANTIBODY Routine 09/22/2013 11:58 AM AUTO BENCH MECHANIC from Last 3 Months or Most Recently Relevant to Health Maintenance Results * HEPATITIS C ANTIBODY (09/22/2013 11:58 AM AUTO BENCH MECHANIC) Hepatitis C Virus Antibody 0.1 0.0 - 0.9 s/co ratio [facility] ([facility]) Comment: Negative: < 0.8 Indeterminate 0.8 - 0.9 Positive: > 0.9 In order to reduce the incidence of a false positive result, the CDC recommends that all s/co ratios between 1.0 and 10.9 be confirmed by a more specific supplemental or PCR testing. [facility] offers HCV Ab w/Reflex to Verification test #[id number]. 09/22/2013 11:5 8 AM AUTO BENCH MECHANIC 09/22/2013 6:08 PM AUTO BENCH MECHANIC Narrative [facility] ([facility]) - 09/23/2013 7:22 AM AUTO BENCH MECHANIC Performed at: 01 - [facility] [address], [place] [id number] Set Up Mechanic Heading Machines: Micah Huertas MD, Phone: [phone] us Adia Iglesias MD LAB - CHEMISTRY ORDERABLES Final Result [facility] ([facility]) [address] [place] [address] from Last 3 Months or Most Recently Relevant to Health Maintenance Care Teams Industrial Safety And Health Manager Relationship Specialty Start Date End Date Ever Abbott MD [address] [place] [id number] PCP - General 04/11/17
[2025-05-10 09:12] VITALS: BP 126/79; PULSE 74; RESP 16; TEMP 36.9; O2SAT 98; BMI 27.1
[2025-05-10] MEDS: LACTATED RINGERS 1,000 ML 150 ML IV CONT (09:29)
[2025-05-10] MEDS: SIMETHICONE ORAL SUSPENSION 20 MG/0.3 ML 30 ML BOTTLE 1.8 ML PO (09:31)
--- NOTE | 2025-05-10 09:57 | WPDANESEPPF ---
Anes - Initial Pre Proc Eval Procedure: Operation Date: 05/10/25 10:30 Proposed Procedures p Esophagogastroduodenoscopy & Colonoscopy - James Jenkins MD Date/Time: 05/10/25 09:57 Surgeon: James Jenkins MD Pre Op Diagnosis: Epigastric pain, Screening Patient Data Age: 65 Gender: F Height: 1.65 m Weight: 73.8 kg Last Vital Signs Temp 98.5 F 05/10/25 09:12 Pulse 74 05/10/25 09:12 Resp 16 05/10/25 09:12 BP 126/79 05/10/25 09:12 Pulse Ox 98 05/10/25 09:12 O2 Del Method Room Air 05/10/25 09:12 Allergies Allergy/AdvReac Type Severity Reaction Status Date / Time Sulfa (Sulfonamide Allergy Mild HIVES Verified 05/10/25 09:20 Antibiotics) Home Medications ?Medication ?Instructions ?Recorded ?Confirmed ?Type estradiol 0.01% (0.1 mg/gram) See Rx Instructions .Route 08/06/23 05/10/25 Rx vaginal cream .COMPLEX #42.5 grams budesonide-formoterol HFA 160 2 puff inhalation Q12H #10.2 grams 06/04/24 05/10/25 Rx mcg-4.5 mcg/actuation aerosol inhaler (Symbicort) tramadol 50 mg tablet 50 mg PO Q4H PRN pain #120 tabs 12/28/24 05/10/25 Rx levothyroxine 112 mcg tablet 112 mcg PO DAILY #90 tabs 03/15/25 05/10/25 Rx sodium sul 1.479 gram-potas ch See Rx Instructions PO .COMPLEX 04/21/25 Rx 0.188 gram-magnes sul 0.225 gram #24 tabs tablet (Sutab) Patient hx anesthesia problems: none Family hx anesthesia problems: none Results Review: All pre-operative results and documents have been reviewed as part of the pre-operative evaluation. [facility] Past Medical History Medical History Jaylan's disease Hypothyroidism Hypertension Surgical History Surgical History History of vaginal surgery (2003) Transvaginal mesh History of hysterectomy with bilateral oophorectomy (2016) History of right inguinal hernia repair (07/2020) With neurectomy History of cholecystectomy (2015) History of tonsillectomy History of shoulder surgery (2009) Right rotator cuff repair Left acromioplasty H/O bilateral breast reduction surgery (1995) Family History Family History Mother , Mother had open heart surgery in her lat 50's and at age 60. Marlee not sure what caused heart condition could have been HTN per Marlee. Hypertension S/P triple vessel bypass Father No problems noted. Social History Social History Years smoked: 30 Smoking status: Former smoker Tobacco type: cigarettes Second hand tobacco smoke exposure: No Smoking end date: 10/27/09 Alcohol intake: never Alcohol use details: Occasional Substance use: never Substance use type: does not use Do You Feel Safe in your Home?: Yes Lack of Transportation: No Lack of Food: Never True Current Housing: I Have Housing Concerned About Future Housing: No Difficulty Paying Gas/Electric Bills: No Difficulty Paying for Meds: No Currently Unemployed: No Difficulty w/ Childcare or Family Care: No Living arrangements: with family Occupation/Education: retired Gender identity (if verbalized by the patient): Female Sexual Orientation (if Verbalized by the Patient): Straight or Heterosexual Spiritual care concerns: No Agree to blood products: Yes Anes - Eval Final PreProcedure Day of Procedure 05/10/25 09:57 Patient weight: normal Lungs: normal air movement Airway: Mallampati scale class II and special considerations (Upper lumineers in place. ) Neurological: alert and oriented Last oral intake: >/= 8 hours ASA classification: II Emergent: no Anesthetic plan: proceed Anesthesia type and monitoring: general GIVS and standard monitoring Results Review: All pre-operative results and documents have been reviewed as part of the pre-operative evaluation. Hx of hashimotos, on thyroid replacement, pt active w silversneakers at Y 5 x weekly, no cp or sob. Informed Consent: The patient's anesthetic plan and its attendant risks and benefits were discussed with the patient/family/POA. Questions were solicited and answers provided to the satisfaction of the patient/family/POA.
--- NOTE | 2025-05-10 10:41 | P.HP_ITS ---
H&P: HPI History of Present Illness Date/Time: 05/10/25 10:41 Chief Complaint: dyspepsia-screening colonoscopy Narrative: this patient has been complaining of intermittent ill-defined epigastric discomfort for several years, sometimes worsened with food. In addition she is referred for screening colonoscopy, the last one was 10 years ago. Review of Systems Review of Systems: All systems reviewed & are unremarkable except as noted in HPI and below PMFSH Past Medical History Medical History Jaylan's disease Hypothyroidism Hypertension Surgical History Surgical History History of vaginal surgery (2003) Transvaginal mesh History of hysterectomy with bilateral oophorectomy (2016) History of right inguinal hernia repair (07/2020) With neurectomy History of cholecystectomy (2015) History of tonsillectomy History of shoulder surgery (2009) Right rotator cuff repair Left acromioplasty H/O bilateral breast reduction surgery (1995) Family History Family History Mother , Mother had open heart surgery in her lat 50's and at age 60. Marlee not sure what caused heart condition could have been HTN per Marlee. Hypertension S/P triple vessel bypass Father No problems noted. Social History Social History Years smoked: 30 Smoking status: Former smoker Tobacco type: cigarettes Second hand tobacco smoke exposure: No Smoking end date: 10/27/09 Alcohol intake: never Alcohol use details: Occasional Substance use: never Substance use type: does not use Do You Feel Safe in your Home?: Yes Lack of Transportation: No Lack of Food: Never True Current Housing: I Have Housing Concerned About Future Housing: No Difficulty Paying Gas/Electric Bills: No Difficulty Paying for Meds: No Currently Unemployed: No Difficulty w/ Childcare or Family Care: No Living arrangements: with family Occupation/Education: retired Gender identity (if verbalized by the patient): Female Sexual Orientation (if Verbalized by the Patient): Straight or Heterosexual Spiritual care concerns: No Agree to blood products: Yes Meds Home Medications and Allergies Home Medications ?Medication ?Instructions ?Recorded ?Confirmed ?Type estradiol 0.01% (0.1 mg/gram) See Rx Instructions .Route 08/06/23 05/10/25 Rx vaginal cream .COMPLEX #42.5 grams budesonide-formoterol HFA 160 2 puff inhalation Q12H #10.2 grams 06/04/24 05/10/25 Rx mcg-4.5 mcg/actuation aerosol inhaler (Symbicort) tramadol 50 mg tablet 50 mg PO Q4H PRN pain #120 tabs 12/28/24 05/10/25 Rx levothyroxine 112 mcg tablet 112 mcg PO DAILY #90 tabs 03/15/25 05/10/25 Rx sodium sul 1.479 gram-potas ch See Rx Instructions PO .COMPLEX 04/21/25 Rx 0.188 gram-magnes sul 0.225 gram #24 tabs tablet (Sutab) Allergies Allergy/AdvReac Type Severity Reaction Status Date / Time Sulfa (Sulfonamide Allergy Mild HIVES Verified 05/10/25 09:20 Antibiotics) Vital Signs Vital Signs - 24 hr 05/10/25 09:12 Temperature 98.5 F Pulse Rate 74 Respiratory Rate 16 Blood Pressure 126/79 Pulse Oximetry 98 Oxygen Delivery Room Air Exam Const: General: cooperative and healthy appearing Resp: Effort & Inspection: normal respiratory effort and able to speak in com plete sentences Auscultation: clear to auscultation bilaterally Cardio: Rate: regular rate Rhythm: regular rhythm GI: Inspection: normal to inspection GI Palp: No No hepatosplenomegaly present Auscultation: normal bowel sounds Rectal Exam: deferred Skin: General skin exam: normal color Psych: Appearance: grossly normal Mental Status: mental status grossly normal Assessment and Plan Assessment and plan (1) Colon cancer screening: Code(s): Z12.11 - Encounter for screening for malignant neoplasm of colon Status: Acute Assessment and Plan: The patient is deemed a good candidate for the procedures. Consent signed. Will proceed. (2) Epigastric abdominal pain: Code(s): R10.13 - Epigastric pain Status: Acute
--- NOTE | 2025-05-10 11:00 | SUR.OPER ---
EGD end 1100 COLONOSCOPY START 110
--- NOTE | 2025-05-10 11:07 | S_PTH ---
PATIENT: Marlee Stafford LOC: [facility] U#:[id number] AGE/SX: 65/F ROOM: RE05/10/[address]: James Jenkins MD : 1960 BED: DIS: 05/10/2025 SPEC #: [id number] RECD: 05/10/25 13:16 STATUS: BAMBI RE #: [id number] TERESA: 05/10/25 11:[address]: James Jenkins DEPT: [facility] Surgical RECD BY: Sapna Childs ENTERED: 05/10/25 13:17 SP TYPE: Surgical OTHR DR: Ever Abbott MD Tissues: A - Gastric Biopsy B - Gastric Biopsy Procedures: Hematoxylin and Eosin Stain Gross and Microscopic Level 4 H.Pylori
[2025-05-10 11:25] VITALS: BP 110/70; PULSE 80; RESP 20; O2SAT 99
[2025-05-10 11:35] VITALS: BP 121/77; PULSE 69; RESP 16; O2SAT 100
[2025-05-10 11:45] VITALS: BP 136/87; PULSE 62; RESP 18; O2SAT 100
== END 2025-05-10 11:56 | disposition home or self-care (01) ==
PROVIDERS: PCP Family Medicine Adolescent Medicine; Referring Provider Nurse Practitioner Family; Visit Provider Internal Medicine Gastroenterology
PROC: 0DJ08ZZ Inspection of Upper Intestinal Tract, Via Natural or Artificial Opening Endoscopic (ICD-10-PCS; CPT 45378; principal; 2025-05-10 10:30)
DX: Z12.11 Encounter for screening for malignant neoplasm of colon (principal); K29.40 Chronic atrophic gastritis without bleeding; E06.3 Autoimmune thyroiditis; I10 Essential (primary) hypertension; Z79.51 Long term (current) use of inhaled steroids; Z79.891 Long term (current) use of opiate analgesic; Z98.890 Other specified postprocedural states; Z90.49 Acquired absence of other specified parts of digestive tract; Z87.891 Personal history of nicotine dependence; Z82.49 Family history of ischemic heart disease and other diseases of the circulatory system
CPT/HCPCS: 43239; G0121; 88305; 88342; J2003; J2704; J7120